=== PATIENT | male | born 1995 | race Caucasian/White ===

== ENCOUNTER 2018-05-01 11:02 | Emergency (ER) | payer BC ==
[2018-05-01 11:32] VITALS: BMI 20.5
[2018-05-01] MEDS ORDERED: SODIUM CHLORIDE 1,000 ML IV STA (11:42)
[2018-05-01] MEDS ORDERED: DEXAMETHASONE LIQUID 0.5 MG/5 ML 240 ML BULK BOTTLE PO ONE (11:42)
[2018-05-01] MEDS ORDERED: ACETAMINOPHEN 1000 MG/100 ML VIAL (NON FORMULARY) IVPB ONE (11:42)
--- NOTE | 2018-05-01 11:49 | PDOC ---
History of Present Illness - General Chief Complaint: Sore Throat Stated Complaint: SORE THROAT-PERITONSILLAR ABCESS Time Seen by Provider: 05/01/18 11:41 History Source: Patient (SHE'LL BE IN SHORTLY) Exam Limitations: No Limitations ( SULFADIAZINE YOU IV is also inflammation, he is hydrated and once his labs come back to check her kidney function is initiated. CAT scan point with the next few cellulitis because honestly appreciated) - History of Present Illness Initial Comments: 05/01/18 12:08 22-year-old male with no past medical history was fully vaccinated presents to ED with 3 days of sore throat and difficulty swallowing and difficulty speaking. Patient states went to an urgent care clinic and then was sent here for possible peritonsillar abscess. Patient states was checked for strep which was negative. Patient denies chest pain, fever, chills recent travel, recent illness Timing/Duration: getting worse Severity: moderate Associated Symptoms: reports: other Past History - Travel Traveled outside of the country in the last 30 days: No Close contact w/someone who was outside of country & ill: No - Past Medical History Allergies/Adverse Reactions: Allergies Allergy/AdvReac Type Severity Reaction Status Date / Time No Known Allergies Allergy Verified 05/01/18 11:28 Home Medications: Ambulatory Orders Clindamycin [Cleocin -] 300 mg PO TID #21 capsule 05/01/18 predniSONE [Deltasone -] 40 mg PO DAILY #8 tablet 05/01/18 COPD: No Other medical history: DENIES. - Suicide/Smoking/Psychosocial Hx Smoking History: Never smoked Patient Lives Alone: No Lives with/in: parents Review of Systems - Review of Systems Able to Perform ROS?: No Is the patient limited Scottish proficient: No Constitutional: No: Symptoms Reported HEENTM: Yes: Throat Pain, Throat Swelling, Difficulty Swallowing. No: Other Respiratory: No: Symptoms reported Cardiac (ROS): No: Symptoms Reported ABD/GI: No: Symptoms Reported : No: Symptoms Reported Musculoskeletal: No: Symptoms Reported Integumentary: No: Symptoms Reported Neurological: No: Symptoms reported *Physical Exam - Vital Signs Last Vital Signs Temp Pulse Resp BP Pulse Ox 99.2 F 81 19 131/95 99 05/01/18 11:28 05/01/18 11:28 05/01/18 11:28 05/01/18 11:28 05/01/18 11:28 - Physical Exam General Appearance: Yes: Nourished, Appropriately Dressed. No: Apparent Distress HEENT: positive: EOMI, RUSSELL, TMs Normal, Muffled/Hoarse voice ( inability to swallow saliva), Pharyngeal Erythema (4+ left tonsil with noted exudate. Uvula midline. Right tonsil 3+ and erythematous). negative: Pale Conjunctivae Neck: positive: Supple, Lymphadenopathy (L) (upper left cervical). negative: Lymphadenopathy (R) Respiratory/Chest: positive: Lungs Clear, Normal Breath Sounds. negative: Respiratory Distress, Accessory Muscle Use Cardiovascular: positive: Regular Rhythm, Regular Rate. negative: Murmur Integumentary: positive: Normal Color, Warm, Moist Neurologic: positive: Motor Strength 5/5 (ambulatory) Moderate Sedation - Procedure Monitoring Vital Signs: Procedure Monitoring Vital Signs Temperature 99.2 F 05/01/18 11:28 Pulse Rate 81 05/01/18 11:28 Respiratory Rate 19 05/01/18 11:28 Blood Pressure 131/95 05/01/18 11:28 O2 Sat by Pulse Oximetry (%) 99 05/01/18 11:28 ED Treatment Course - LABORATORY CBC & Chemistry Diagram: 05/01/18 12:00 05/01/18 12:00 - RADIOLOGY Radiology Studies Ordered: Category Date Time Status SOFT TISSUE NECK CT WITH CONTR [CT] Stat CT Scan 05/01/18 11:42 Ordered Medical Decision Making - Medical Decision Making 05/01/18 12:11 Complaint. Difficulty swallowing, drooling, throat pain with swelling for the past 2-3 days. Referred from urgent care for possible peritonsillar abscess. Exam. Patient with 3-4 erythematous tonsils with exudate to the left tonsil. Patient concerning for sepsis peritonsillar abscess and dehydration. Plan. Patient ordered for IV fluids, IV Decadron, IV Tylenol labs and CT with IV contrast of the soft tissue neck 05/01/18 13:12 Laboratory Tests 05/01/18 12:00 WBC 24.1 H Hgb 16.0 Hct 46.7 Neutrophils % 86.9 H 05/01/18 15:47 CT shows soft tissue swelling within the left peritonsillar region which is consistent with an inflammatory process developing abscess. Discrete fluid collection is not noted at this time. Correlation with laryngoscopic is recommended. No additional masses or fluid collections identified throughout the neck. No significant with lymphadenopathy is noted. The parotid submandibular and thyroid gland symmetry no abnormalities. No laryngeal lesions are identified. 05/01/18 15:47 Laboratory Tests 05/01/18 05/01/18 12:00 12:00 Sodium 135 L Potassium 3.9 Chloride 100 Carbon Dioxide 27 Anion Gap 7 L BUN 13 Creatinine 1.1 Random Glucose 92 Lactic Acid 1.2 Calcium 9.1 Total Bilirubin 1.3 H AST 18 ALT 31 Alkaline Phosphatase 78 Total Protein 8.4 H Albumin 4.4 Consultations ENT placed. Patient states is able to swallow slightly better but still continues with hot potato voice. Patient received clindamycin 05/01/18 16:39 Case discussed with ENT Dr. Carl who is recommending close follow-up and will consult as needed. 05/01/18 18:15 Patient speaking clearer and tolerated approximately 60 mL of soda. Reexam- no uvular deviation. Vital signs stable. Patient requesting to go home. I spoke to ENT specialist Dr. Carl who feels patient may go home if patient feels comfortable and understands what signs and symptoms to be aware of. 05/01/18 18:42 Patient was also evaluated by ENT, Dr. Carl who performed a scope at bedside and stated airway appears clear and feels patient may be discharged home with clindamycin and prednisone. She also wants patient to be seen on Thursday by her. Parents will aware of signs and symptoms to look out for and Thursday's appointment *DC/Admit/Observation/Transfer Diagnosis at time of Disposition: Peritonsillar cellulitis - Discharge Dispostion Disposition: HOME Condition at time of disposition: Improved - Prescriptions Prescriptions: Clindamycin [Cleocin -] 300 mg PO TID #21 capsule predniSONE [Deltasone -] 40 mg PO DAILY #8 tablet - Referrals Referrals: Carl Carl MD [Staff Physician] - - Patient Instructions Printed Discharge Instructions: DI for Peritonsillar Abscess -- Adult Additional Instructions: Take Motrin 400 mg every 6-8 hours or take Tylenol 650 mg every 6-8 hours for adequate pain control. Take Prednisone starting tomorrow Drink plenty of fluids eat soft foods for the next 72 hours and advance as tolerated. Please take antibiotics starting tonight and complete the medication. If you develop any worsening pain difficulty swallowing or difficulty speaking or high fever please call 911 immediately Please go to ENT specialist on Thursday - Post Discharge Activity Forms/Work/School Notes: Back to Work
[2018-05-01] MEDS ORDERED: DEXAMETHASONE SOD PHOSPHATE 10 MG/1 ML VIAL ONE (12:02)
[2018-05-01] MEDS ORDERED: ACETAMINOPHEN INJECTION 100 ML IVPB ONE (12:03)
[2018-05-01 12:35] LABS: BASO % 0.2 % (0-2.0); HEMATOCRIT 46.7 % (35.4-49); LYMPH % 4.9 % (8-40); MCH 30.4 pg (25.7-33.7); MCHC 34.2 g/dl (32.0-35.9); MEAN PLT VOLUME 8.9 fl (7.5-11.1); NEUT % 86.9 % (42.8-82.8); PLATELET COUNT 237 K/MM3 (134-434); RBC 5.25 M/mm3 (4.00-5.60); RDW 13.9 % (11.9-15.9); WHITE BLOOD COUNT 24.1 K/mm3 (4.0-10.0)
[2018-05-01 13:12] LABS: ALBUMIN 4.4 g/dl (3.4-5.0); ALK PHOS 78 U/L (45-117); ANION GAP 7 MMOL/L (8-16); BILIRUBIN,TOTAL 1.3 mg/dL (0.2-1); BLOOD UREA NITROGEN 13 mg/dL (7-18); CALCIUM 9.1 mg/dL (8.5-10.1); CHLORIDE 100 mmol/L (98-107); CO2 27 mmol/L (21-32); CREATININE 1.1 mg/dL (0.55-1.3); GLUCOSE,RANDOM 92 mg/dL (74-106); POTASSIUM 3.9 mmol/L (3.5-5.1); SGOT/AST 18 U/L (15-37); SGPT/ALT 31 U/L (13-61); SODIUM 135 mmol/L (136-145); TOT PROT 8.4 g/dl (6.4-8.2)
[2018-05-01] MEDS ORDERED: CLINDAMYCIN 600MG PREMIX IVPB 600 MG/50 ML BAG IVPB ONE ×2 (15:45→15:59)
[2018-05-01 15:49] LABS: PLATELET ESTIMATE ADEQUATE
[2018-05-01 18:31] VITALS: BP 133/78; PULSE 83; TEMP 97.9
--- NOTE | 2018-05-01 19:11 | CONSULT ---
Consult - text type - Consultation Consultation Note: Patient is a 22 y/o healthy male who I was consulted on to see for sore throat r /o POOLING OPERATOR. Patient with 3 day h/o progressive sore throat, hot potato voice and dysphasia who presented to urgent care and then was referred to ER to r/o POOLING OPERATOR. No shortness of breath. He denies h/o OM and tonsillitis. Patient was reported drooling when he first presented to Er but this has resolved and he is tolerating po. no recent antibiotics Medications: none PMH: none NKDA FH: NC SH: NC PE: awake alert sitting with family in waiting room with heplock Comfortable VSS afeb (now) presnted with fever. voice : very slight hot potato voice (almost wnl) Ears wnl EACs cerumen impaction bilaterally NC wnl OC wnl opx: left tonsil with hypertrophy and exudate and moderate erythema. right tonsil with mild erythema. uvula mid line, no swelling, oropharyngeal mucosa with erythema. CBC WBC 24.1 K/mm3 (4.0-10.0) H 05/01/18 12:00 RBC 5.25 M/mm3 (4.00-5.60) 05/01/18 12:00 Hgb 16.0 GM/dL (11.7-16.9) 05/01/18 12:00 Hct 46.7 % (35.4-49) 05/01/18 12:00 MCV 89.0 fl (80-96) 05/01/18 12:00 MCH 30.4 pg (25.7-33.7) 05/01/18 12:00 MCHC 34.2 g/dl (32.0-35.9) 05/01/18 12:00 RDW 13.9 % (11.9-15.9) 05/01/18 12:00 Plt Count 237 K/MM3 (134-434) 05/01/18 12:00 MPV 8.9 fl (7.5-11.1) 05/01/18 12:00 Absolute Neuts (auto) 21.0 K/mm3 (1.5-8.0) H 05/01/18 12:00 Total Counted 100 05/01/18 12:00 Neutrophils % 86.9 % (42.8-82.8) H 05/01/18 12:00 Neutrophils % (Manual) 86.0 % (42.8-82.8) H 05/01/18 12:00 Band Neutrophils % 1.0 % 05/01/18 12:00 Lymphocytes % 4.9 % (8-40) L 05/01/18 12:00 Lymphocytes % (Manual) 5.0 % (8-40) L 05/01/18 12:00 Monocytes % 8.0 % (3.8-10.2) 05/01/18 12:00 Monocytes % (Manual) 6 % (3.8-10.2) 05/01/18 12:00 Eosinophils % 0.0 % (0-4.5) 05/01/18 12:00 Basophils % 0.2 % (0-2.0) 05/01/18 12:00 Nucleated RBC % 0 % (0-0) 05/01/18 12:00 Platelet Estimate Adequate 05/01/18 12:00 Platelet Comment Large platelets 05/01/18 12:00 Vital Signs (72 hours) 05/01/18 05/01/18 11:28 18:31 Temperature 99.2 F 97.9 F Pulse Rate 81 Pulse Rate [ 83 Right] Respiratory 19 18 Rate Blood Pressure 131/95 Blood Pressure 133/78 [Right Arm] O2 Sat by Pulse 99 98 Oximetry (%) DFL: nasal cavirty mucosa, turbinates wnl, ONcs and SErs wnl. Npx wnl. oropharynx left tonsil with hypertrophy and exudate and moderate erythema. right tonsil with mild erythema. uvula mid line, no swelling, oropharyngeal mucosa with erythema. hypopharynx wnl (no pharyngeal mucosal edema, no induration, no bulge, epiglottis wnl, arytenoids wnl.) Larynx vf wnl. vfs mobile bilaterally. airway widely patent. Labs and CT scan reviewed images reviewed. no abscess. Left tonsillitis, oropharyngitis. A/P: Patient with acute tonsillitis, acute pharyngitis, dysphagia. Patient improved significantly in ER with clinda and decadron. tolerating po. discussed options. He would like to go home and understands if he worsens - starts to drool again, can drink or eat, has fever he will come back to the ER. He will go home on Clinda and prednisone and will follow up with me on Thursday morning in the office. His family was present for discussion and understands this as well. They have my office and cell phone numbers if he or they have any questions/concerns.
== END 2018-05-01 18:44 | disposition home or self-care (01) ==
LOC: JER 11:02
PROC: 3E03329 Introduction of Other Anti-infective into Peripheral Vein, Percutaneous Approach (ICD-10-PCS; principal; 2018-05-01)
PROC: 3E033NZ Introduction of Analgesics, Hypnotics, Sedatives into Peripheral Vein, Percutaneous Approach (ICD-10-PCS; 2018-05-01)
DX: J36 Peritonsillar abscess (principal)
CPT/HCPCS: 36415; 70491-TC; 80053; 83605; 85025; 87070; 87880; 99282-25; J0131; J7030